=== PATIENT | male | born 1955 | race Caucasian/White ===

== ENCOUNTER 2016-03-30 20:24 | Emergency (ER) | payer BC ==
[2016-03-30 20:41] VITALS: BP 163/92
[2016-03-30] MEDS ORDERED: Aspirin Low Dose CHEW TAB* 81 MG PO ONE (20:54)
--- NOTE | 2016-03-30 20:54 | UC ---
Cardiac HPI - HPI Summary HPI Summary: 61 yo man with a history of hypertension, with onset of "heart stress" this afternoon when he was manipulating a heavy chair. This made him short of breath but the symptoms resolved with about 1/2 hour of rest. AT about 6 pm he was trying to move the heavy chair again, with recurrent symptoms that are not abating with rest. He feels unwell, but earlier mild headache has resolved. Denies chest pain, no nausea or vomiting. History of hypertension with treatment for the past year. No hx of smoking, remote stress test normal > 10 years ago. Father CHF at an elderly age. Does not know his cholesterol. Had flu earlier this month with recurrent fevers, slow to improve, and this put him off his usual exercise. Does not take aspirin regularly - History of Current Complaint Chief Complaint: UCChestPain Stated Complaint: CHEST PAIN Time Seen by Provider: 03/30/16 20:47 Hx Obtained From: Patient, Family/[employer] - here with his Yari Onset/Duration: Sudden Onset, Lasting Hours - about 3 hours since second onset. Timing: Constant Initial Severity: Moderate Current Severity: Moderate Character: Fast, Irregular Aggravating: Exertion, Position Alleviating: Rest Associated Signs & Symptoms: Positive: Recent Stress - had 2 weeks of flu with fever (physical stress), Weakness, Palpitations - Risk Factors Cardiac Risk Factors: Hypertension Atrial Fibrillation: Hypertension TAD Risk Factors: Hypertension AMI/ACS Risk Factors: Sedentary Lifestyle, Obesity, Hypertension - Allergy/Home Medications Allergies/Adverse Reactions: Allergies Allergy/AdvReac Type Severity Reaction Status Date / Time Latex Allergy Rash, Verified 10/21/12 10:01 IRRITATED Home Medications: Home Medications Lisinopril/HCTZ 20/25(NF) [Zestoretic 20/25(NF)] 1 tab PO DAILY 03/30/16 [ History Confirmed 03/30/16] Multivitamins/Minerals TAB* [Thera M Plus TAB*] 1 tab PO DAILY 03/30/16 [ History Confirmed 03/30/16] PMH/Surg Hx/FS Hx/Imm Hx Endocrine History Of: Denies: Diabetes, Thyroid Disease Cardiovascular History Of: Reports: Hypertension Denies: Cardiac Disorders Respiratory History Of: Denies: COPD, Asthma GI/ History Of: Reports: Kidney Stones - RIGHT Denies: Ulcer - Surgical History Surgical History: Yes Surgery Procedure, Year, and Place: kidney stones. hernia as a child. tonsillectomy - Family History Known Family History: Positive: Cardiac Disease - father of CHF - Social History Lives: With Family - works as nurse at [employer] [place] Alcohol Use: None Substance Use Type: None Smoking Status (MU): Never Smoked Tobacco - Immunization History Most Recent Influenza Vaccination: 01/2016 Review of Systems Constitutional: Fatigue Skin: Negative Eyes: Negative ENT: Negative Respiratory: Shortness Of Breath Cardiovascular: Palpitations Gastrointestinal: Negative Genitourinary: Negative Motor: Negative Neurovascular: Negative Musculoskeletal: Negative Neurological: Negative Psychological: Negative All Other Systems Reviewed And Are Negative: Yes Physical Exam Triage Information Reviewed: Yes Appearance: No Pain Distress, Obese, Other: - mild dyspneic, mildly diaphoretic. Alert and oriented, able to speak in full sentences. Vital Signs: Initial Vital Signs Temp 99.4 F 03/30/16 20:30 Pulse 136 03/30/16 20:30 Resp 19 03/30/16 20:30 BP 163/92 03/30/16 20:30 Pulse Ox 98 03/30/16 20:30 Vital Signs Reviewed: Yes Eyes: Positive: Conjunctiva Clear ENT: Positive: Pharynx normal Neck: Positive: Supple, Nontender Respiratory: Positive: Lungs clear, Normal breath sounds Cardiovascular: Positive: Tachycardia - with irregular rhythma, Distal Pulses Weak - difficulty obtaining distal pulses. Abdomen Description: Positive: Nontender, No Organomegaly, Soft Bowel Sounds: Positive: Present Musculoskeletal Exam: Normal Neurological: Positive: Alert, Muscle Tone Normal Skin Exam: Other - stasis dermatitis both LE Diagnostics - EKG Cardiac Rate: Tachycardia Cardiac Rhythm: AFib: New Ectopy: PVCs ST Segment: Non-Specific - Assessment/Plan Course Of Treatment: aspirin 324mg given - Differential Diagnoses - Chest Pain Differential Diagnosis/HQI/PQRI: ACS, CHF, Other: - atrial fibrillation - Clinical Impression Provider Diagnoses: rapid atrial fibrillation - Physician Notifications Discussed Patient Care With: [place] Mcke[place] [employer] [facility] [place] Discussed With Above Provider: 20:50 Instructed by Provider To: MD Will See In ED Discharge - Discharge Plan Condition: Stable Disposition: TRANS HIGHER LVL OF CARE FAC
== END 2016-03-30 21:25 | disposition short-term general hospital (02) ==
LOC: UCCORT 20:24
DX: I48.91 Unspecified atrial fibrillation (principal); I10 Essential (primary) hypertension; R53.83 Other fatigue
CPT/HCPCS: 93005; 99213; A9270-GY; G0463

== ENCOUNTER 2016-03-30 22:03 | Emergency (ER) | payer BC ==
[2016-03-30] MEDS ORDERED: Aspirin Low Dose CHEW TAB* 81 MG PO ONE (22:07)
[2016-03-30 22:27] LABS: Hematocrit 42 % (42-52); Mean Corpuscular HGB Conc 34 g/dl (31-36); Mean Corpuscular Hemoglobin 29 pg (27-31); Mean Corpuscular Volume 86 fL (80-94); Mean Platelet Volume 8 um3 (7.4-10.4); Red Blood Count 4.85 10^6/ul (4.0-5.4); Red Cell Distribution Width 13 % (10.5-15)
[2016-03-30 22:28] LABS: Add Diff/Slide Review? Slide Review Added; Comments Flag Yes
--- NOTE | 2016-03-30 22:41 | ED ---
Chance Conrad Janilya, scribed for Filipe Urbina MD on 03/30/16 at 2216 . HPI Chest Pain - HPI Summary HPI Summary: A 61 y/o male was BIBA from [facility] for a gradual onset of intermittent CP starting today. Pt reports he had "a weird sensation in chest" at 1230. However, half an hour later, the pain subsided. Later at 1830, the pain returned and was not relieved like it was the first time. Instead, it lingered for a while. So, pt went to Urgent Care at around 2030. At Urgent Care , pt had elevated heart beat, hence his visit to [facility] today. - History of Current Complaint Chief Complaint: EDGeneral Time Seen by Provider: 03/30/16 22:04 Hx Obtained From: Patient Onset/Duration: Started Hours Ago, Atraumatic, Still Present Timing: Constant Initial Severity: Moderate Current Severity: Moderate Pain Intensity: 0 Chest Pain Location: Diffuse Chest Pain Radiates: No Aggravating Factor(s): Nothing Alleviating Factor(s): Nothing Associated Signs and Symptoms: Positive: Negative - Allergy/Home Medications Allergies/Adverse Reactions: Allergies Allergy/AdvReac Type Severity Reaction Status Date / Time Latex Allergy Rash, Verified 10/21/12 10:01 IRRITATED PMH/Surg Hx/FS Hx/Imm Hx Endocrine/Hematology History: Denies: Hx Diabetes, Hx Thyroid Disease Cardiovascular History: Reports: Hx Hypertension Respiratory History: Denies: Hx Asthma, Hx Chronic Obstructive Pulmonary Disease (COPD) GI History: Denies: Hx Ulcer History: Reports: Hx Kidney Infection - PRESENTLY, Hx Kidney Stones - RIGHT Sensory History: Denies: Hx Contacts or Glasses, Hx Hearing Aid Opthamlomology History: Denies: Hx Contacts or Glasses - Cancer History Cancer Type, Location and Year: Small basal cell carcinoma - Surgical History Surgery Procedure, Year, and Place: kidney stones. hernia as a child. tonsillectomy Hx Anesthesia Reactions: No Infectious Disease History: Denies: Hx Hepatitis, Hx Human Immunodeficiency Virus (HIV), Traveled Outside the [place] in Last 30 Days - Family History Known Family History: Positive: Cardiac Disease - father of CHF - Social History Lives: With Family Alcohol Use: None Substance Use Type: Reports: None Smoking Status (MU): Never Smoked Tobacco Review of Systems Negative: Fever Positive: Chest Pain All Other Systems Reviewed And Are Negative: Yes Physical Exam Triage Information Reviewed: Yes Vital Signs On Initial Exam: Initial Vitals Temp Pulse Resp BP Pulse Ox 100.0 F 106 18 182/91 95 03/30/16 22:06 03/30/16 22:06 03/30/16 22:06 03/30/16 22:06 03/30/16 22:06 Vital Signs Reviewed: Yes Appearance: Positive: Well-Appearing, No Pain Distress Skin: Positive: Warm Head/Face: Positive: Normal Head/Face Inspection Eyes: Positive: ZANDER ENT: Positive: Hearing grossly normal Neck: Positive: Supple Respiratory/Lung Sounds: Positive: Clear to Auscultation, Breath Sounds Present Cardiovascular: Positive: Normal Abdomen Description: Positive: Nontender, Soft Bowel Sounds: Positive: Present Musculoskeletal: Positive: Strength/ROM Intact Neurological: Positive: Alert, Oriented to Person Place, Time Diagnostics - Vital Signs Vital Signs Temp Pulse Resp BP Pulse Ox 03/30/16 22:06 100.0 F 106 18 182/91 95 - Laboratory Lab Results: Lab Results 03/30/16 Range/Units 22:16 WBC 12.0 H (3.5-10.8) 10^3/ul RBC 4.85 (4.0-5.4) 10^6/ul Hgb 14.0 (14.0-18.0) g/dl Hct 42 (42-52) % MCV 86 (80-94) fL MCH 29 (27-31) pg MCHC 34 (31-36) g/dl RDW 13 (10.5-15) % Plt Count 251 (150-450) 10^3/ul MPV 8 (7.4-10.4) um3 Neut % (Auto) 74.7 (38-83) % Lymph % (Auto) 15.1 L (25-47) % Otoe % (Auto) 6.1 (1-9) % Eos % (Auto) 2.3 (0-6) % Baso % (Auto) 1.8 (0-2) % Absolute Neuts (auto) 9.0 H (1.5-7.7) 10^3/ul Absolute Lymphs (auto) 1.8 (1.0-4.8) 10^3/ul Absolute Monos (auto) 0.7 (0-0.8) 10^3/ul Absolute Eos (auto) 0.3 (0-0.6) 10^3/ul Absolute Basos (auto) 0.2 (0-0.2) 10^3/ul Absolute Nucleated RBC 0.01 10^3/ul Nucleated RBC % 0.1 Result Diagrams: 03/30/16 22:16 03/30/16 23:59 Lab Statement: Any lab studies that have been ordered have been reviewed, and results considered in the medical decision making process. - Radiology CXR Xray Interpretation: No Acute Changes - IMPRESSION: normal Radiology Interpretation Completed By: ED Physician - Dr. Urbina - EKG 2232 Cardiac Rate: NL - 98 bpm EKG Rhythm: Sinus Rhythm ST Segment: Normal Ectopy: None EKG Interpretation: Non-specific T wave abnormalities Re-Evaluation - Re-Evaluation First Eval Change: Improved - pain free, results d/w pt Chest Pain Course/Dx - Diagnoses Provider Diagnoses: Chest pain Discharge - Discharge Plan Condition: Stable Disposition: HOME Patient Education Materials: Chest Pain (ED) Referrals: Mukul Mays MD [Primary Care Provider] - Additional Instructions: Follow up with your primary care provider. The documentation as recorded by the Chance [place] Janilya accurately reflects the service I personally performed and the decisions made by Carlitos cline David, MD.
[2016-03-30 22:45] LABS: ALT 136 U/L (7-52); Albumin 3.6 g/dL (3.2-5.2); Alkaline Phosphatase 209 U/L (34-104); BUN/Creatinine Ratio 28.7 (8-20); Blood Urea Nitrogen 29 mg/dL (6-24); CO2 Carbon Dioxide 24 mmol/L (22-32); Calcium 9.3 mg/dL (8.6-10.3); Chloride 103 mmol/L (101-111); EGFR African American 97.2 (>60); EGFR Non-African American 75.6 (>60); Globulin 3.4 g/dL (2-4); Glucose 115 mg/dL (70-100); Magnesium 2.2 mg/dL (1.9-2.7); Sodium 135 mmol/L (133-145)
[2016-03-30 22:48] LABS: Troponin I 0.03 ng/mL (<0.04)
[2016-03-31 02:06] LABS: Troponin I 0.03 ng/mL (<0.04)
[2016-03-31 02:53] VITALS: BP 181/79
--- NOTE | 2016-03-31 08:36 | RAD ---
Indication: Chest pain. 2 views of the chest including dual energy PA views demonstrates no mediastinal shift. Comparison is made with previous exam dated July 09, 2009. No mediastinal shift is noted. Tortuous descending aorta. There are masses in the right upper lobe and right base. These were not present on prior exam. CT is suggested for further evaluation. Left lung field is clear. Prominent superior vena cava is noted. This is unchanged. IMPRESSION: Masses are noted in the right upper lobe with mild interstitial edema. Further evaluation with CT of the chest is suggested to exclude a mass. Left lung field is clear.
== END 2016-03-31 02:53 | disposition home or self-care (01) ==
LOC: ED 22:03
DX: R07.9 Chest pain, unspecified (principal); I10 Essential (primary) hypertension; Z87.442 Personal history of urinary calculi; I48.91 Unspecified atrial fibrillation; R53.83 Other fatigue
CPT/HCPCS: 36415; 71020; 80053; 83605; 83735; 83880; 84484; 85025; 93005; 99213; 99282; A9270-GY; G0463